=== PATIENT | female | born 1980 | race Two or more races ===

== ENCOUNTER 2018-08-10 11:32 | Outpatient (CLI) | payer OTHER | END 2018-08-10 11:41 | disposition home or self-care (01) | LOC: MRI 11:32 | DX: R97.1 Elevated cancer antigen 125 [CA 125] (principal); R80.8 Other proteinuria | CPT/HCPCS: 72196 ==

== ENCOUNTER 2024-11-23 06:27 | Day surgery (SDC) | payer OTHER ==
[2024-11-20 10:11] VITALS: BP 114/75
[2024-11-20 12:23] LABS: RH POSITIVE
[~2024-11-23] VITALS: Ht 165.1 cm; Wt 72.6 kg
[2024-11-23] MEDS ORDERED: METRONIDAZOLE/SODIUM CHLORIDE 500 MG/100 ML PIGGYBACK IV ONE (12:16)
[2024-11-23] MEDS ORDERED: POVIDONE-IODINE 118 ML BOTT TOP ONE (12:16)
[2024-11-23] MEDS ORDERED: HEMOSTATIC MATRIX 1 KIT KIT TOP ONE (12:16)
[2024-11-23] MEDS ORDERED: CEFAZOLIN SODIUM 1,000 MG VIAL ONE (12:16)
== END 2024-11-23 15:50 | disposition home or self-care (01) ==
LOC: CIR.AMB 06:27
PROVIDERS: ATTEND Obstetrics & Gynecology Gynecologic Oncology
DX: N84.1 Polyp of cervix uteri (principal); N93.8 Other specified abnormal uterine and vaginal bleeding; R10.2 Pelvic and perineal pain; N85.00 Endometrial hyperplasia, unspecified; N92.0 Excessive and frequent menstruation with regular cycle; N92.6 Irregular menstruation, unspecified